=== PATIENT | female | born 1995 | race Caucasian/White ===

== ENCOUNTER 2024-02-01 07:50 | Outpatient (CLI) | payer OTHER, SELFPAY ==
[2024-02-01 12:26] LABS: Chlamydia DNA Amplified* NOT DETECTED (No Detected); GC DNA Amplified* NOT DETECTED (No Detected)
== END 2024-02-01 07:51 | disposition home or self-care (01) ==
LOC: NFLDREF 08:18
PROVIDERS: Visit Provider Physician Assistant
DX: N89.8 Other specified noninflammatory disorders of vagina (principal)
CPT/HCPCS: 87491; 87591